=== PATIENT | female | born 1990 | race Caucasian/White ===

== ENCOUNTER 2023-12-08 13:40 | Emergency (ER) | payer OTHER, SELFPAY ==
[2023-12-08 13:46] VITALS: BP 146/112; PULSE 112; RESP 20; TEMP 36.5; O2SAT 95
[2023-12-08] MEDS: ONDANSETRON HCL ODT 4 MG TABLET PO (14:09)
[2023-12-08] MEDS: KETOROLAC 30 MG/ML VIAL (*BKC) IM (14:09)
--- NOTE | 2023-12-08 15:05 | ED.ABDPAIN ---
HPI - Abdominal Pain General Chief Complaint: Abdominal Pain Stated Complaint: abdominal pain History of Present Illness HPI narrative: This is a 33-year-old female, with history of amenorrhea, who presents to the emergency department complaining vaginal bleeding and lower abdominal cramps. The patient states 3 days ago she was started on oral Provera by her Ob doctor. She has since developed vaginal bleeding using 1 pad an hour for the past 5-6 hours, along with cramping and nausea. She denies lightheadedness, loss of consciousness, chest pain or shortness of breath. Related Data Allergies Allergy/AdvReac Type Severity Reaction Status Date / Time No Known Allergies Allergy Verified 12/08/23 13:57 Review of Systems Review of Systems: CONSTITUTIONAL: Denies fever, chills, or sweats. CARDIOVASCULAR: Denies chest pain, palpitations, or edema. RESPIRATORY: Denies cough or dyspnea. GASTROINTESTINAL: Cramping lower abdominal pain, nausea Denies vomiting, or diarrhea. GENITOURINARY: Last menstrual period ongoing Denies dysuria or hematuria. SKIN: Denies rash or itching. MUSCULOSKELETAL: Denies back pain, joint pain, or myalgia. NEUROLOGIC: Denies headache, numbness, dizziness, or weakness. PSYCHIATRIC: Denies anxiety or depression. PMFSH Past Medical History Medical History No significant past medical history Surgical History Surgical History No significant past surgical history Social History Social History Smoking status: Never smoker Alcohol intake: never Substance use: never Exam Narrative: GENERAL: Well-developed, well-nourished, and in no acute distress. appears uncomfortable HEAD: Normocephalic, atraumatic. EYES: PERRLA and EOMI. ENT: No conjunctival pallor Mucous membranes moist. Oropharynx without tonsillar hypertrophy exudate or other lesions. CHEST: Clear to auscultation. No respiratory distress. No wheezes rales or rhonchi HEART: Regular rate and rhythm. No murmur heard. Normal peripheral pulses. ABDOMEN: Soft, nontender, nondistended, normal active bowel sounds. EXTREMITIES: Normal range of motion. No edema. SKIN: Warm, dry, no rash. NEURO: Alert and oriented x3. No focal deficit. Moving all 4 limbs spontaneously PSYCH: Normal mood and affect. Course Course Emergency Course: 15:05 - On re-evaluation after Toradol and Zofran, the patient states she feels improved. I do not suspect severe hemorrhage. Will discharge with recommendation for OB and primary care follow-up. Discussed return and emergency precautions including signs/symptoms of symptomatic anemia and acute abdomen. The patient voiced understanding and is comfortable with the plan. All questions answered to her satisfaction. Vital Signs Vital signs: Vital Signs Temperature 97.7 F 12/08/23 13:46 Pulse Rate 112 H 12/08/23 13:46 Respiratory Rate 20 12/08/23 13:46 Blood Pressure 146/112 H 12/08/23 13:46 Pulse Oximetry 95 12/08/23 13:46 Oxygen Delivery Room Air 12/08/23 13:46 Temperature 98.0 F 12/08/23 15:25 Pulse Rate 76 12/08/23 15:25 Respiratory Rate 20 12/08/23 15:25 Blood Pressure 123/89 12/08/23 15:25 Pulse Oximetry 97 12/08/23 15:25 Oxygen Delivery Room Air 12/08/23 15:25 MDM - Abdominal Pain MDM Narrative Medical decision making narrative: Plan: Pain control, antiemetics, reassess Differential Diagnosis Differential diagnosis: Likely other ( menses, menorrhagia, other) Discharge Plan Discharge Clinical Impression: Lower abdominal pain Menorrhagia Qualifiers: Menorrhagia type: with irregular cycle Qualified Code(s): N92.1 - Excessive and frequent menstruation with irregular cycle Patient Disposition: Home, Self-Care Condition: Stable Instructions: Antibiotic Form, Abnormal (Dysfunction
[2023-12-08 15:25] VITALS: BP 123/89; PULSE 76; RESP 20; TEMP 36.7; O2SAT 97
== END 2023-12-08 15:26 | disposition home or self-care (01) ==
PROVIDERS: Emergency Provider Preventive Medicine Aerospace Medicine
DX: R10.30 Lower abdominal pain, unspecified (principal); N92.1 Excessive and frequent menstruation with irregular cycle
CPT/HCPCS: 96372; 99283; A9270; J1885